=== PATIENT | female | born 1990 | race Caucasian/White ===

== ENCOUNTER 2020-03-20 21:51 | Emergency (ER) | payer SELFPAY ==
[2020-03-20 22:01] VITALS: BP 171/72; PULSE 91; RESP 20; TEMP 36.8; O2SAT 98
--- NOTE | 2020-03-20 22:12 | ED_ITS ---
HPI - Dental/Oral General Chief complaint: Dental/Oral Stated complaint: tooth ache Time Seen by Provider: 03/20/20 21:58 Source: patient Mode of arrival: Ambulatory Limitations: no limitations History of Present Illness HPI Narrative: Patient here with boyfriend, boyfriend's mother's driving. Complains of left upper tooth pain for the past 2 days. Hard to sleep. No known injury. No fever. Seen by urgent care dental today and recommend Tylenol and ibuprofen and was referred to specialist. No antibiotics no pain medication otherwise. Denies does not want a test. No recent illness. No fever chills cough cold congestion sore throat. No recent dental procedures. Teeth map: 1. Tenderness/pain to tooth 14. Related Data Previous Rx's Medication Instructions Recorded hydrocodone-acetaminophen 1 tab PO Q6H PRN #7 tab 03/20/20 penicillin V potassium 500 mg PO QID #28 tab 03/20/20 Review of Systems Review of Systems Narrative: GENERAL: Denies chills, fatigue, malaise, fever, sweats. HEENT: Denies sinus pain, ear pain, sore throat, difficulty swallowing, complains of dental pain RESPIRATORY: Denies dyspnea, cough CARDIOVASCULAR: Denies chest pain, palpitations, edema, GASTROINTESTINAL: Denies nausea, vomiting, abdominal pain, diarrhea, constipation, melena. NEUROLOGIC: Complains headache PSYCHIATRIC: No SI or HI or hallucinations ROS Unobtainable: All systems reviewed & are unremarkable except as noted in HPI and below Patient History Social History Smoking Status: Never smoker Smoking Status: Never smoker alcohol intake frequency: 0-2 drinks per day Substance Use Type: marijuana Exam Narrative Exam Narrative: GENERAL: patient appears stated age. Well-nourished, well- developed patient, in no distress, not toxic not dyspneic HEAD: Normocephalic. ENT: Mucous membranes moist. No drooling no tongue elevation no trismus no malocclusion, tenderness to tooth 14. No surrounding gum erythema edema or palpable abscess. No facial swelling. No erythema of the face or skin. No fracture to tooth number 14. NECK: Trachea midline. Non tender CARDIOVASCULAR: Regular rate and rhythm without murmurs, gallops, or rubs. RESPIRATORY: Clear to auscultation. Breath sounds equal bilaterally. No wheezes, rales, or rhonchi. NEURO: AOx4. SKIN: Warm and dry PSYCH: Not anxious, is cooperative Initial Vital Signs Initial Vital Signs: Vital Signs Temperature 98.3 F 03/20/20 22:01 Pulse Rate 91 H 03/20/20 22:01 Respiratory Rate 20 03/20/20 22:01 Blood Pressure 171/72 H 03/20/20 22:01 Pulse Oximetry 98 03/20/20 22:01 Course Orders Ordered: Discontinued Medications Hydrocodone Bitart/Acetaminophen ([place] 5/325) 1 tab PO NOW ONE Stop: 03/20/20 22:11 Last Admin: 03/20/20 22:20 Dose: 1 tab Documented by: DIAZ Hydrocodone Bitart/Acetaminophen (Vicod[place] 5/325 Prepack) 1 bottle MISC SEEINSTR ONE Stop: 03/20/20 22:11 Last Admin: 03/20/20 22:20 Dose: 1 bottle Documented by: DIAZ Al Hydrox/Mg Hydrox/Simethicone 20 ml/ Lidocaine HCl 15 ml 0 ml PO NOW ONE Stop: 03/20/20 22:17 Last Admin: 03/20/20 22:20 Dose: 35 ml Documented by: DIAZ Ondansetron HCl (Zofran Odt) 4 mg SL NOW ONE Stop: 03/20/20 22:12 Last Admin: 03/20/20 22:19 Dose: 4 mg Documented by: DIAZ Penicillin V Potassium (Veetids) 500 mg PO NOW ONE Stop: 03/20/20 22:11 Last Admin: 03/20/20 22:19 Dose: 500 mg Documented by: DIAZ Reevaluation(s) Reevaluation #1: Reviewed treatment plan with patient and boyfriend. They agree with plan. They desire discharge home. Not toxic Time: 22:25 Vital Signs Vital signs: Vital Signs - 8 hr 03/20/20 22:01 Temperature 98.3 F Pulse Rate 91 H Respiratory Rate 20 Blood Pressure 171/72 H Pulse Oximetry 98 MDM - Dental/Oral Differential Diagnosis Differential diagnosis: Likely toothache and dental abscess MDM Narrative Medical decision making narrative: Appropriate for discharge home. No labs indicated this time. Patient not toxic. Blood pressure noted likely pain related. Discharge Plan Departure Patient Disposition: Home Clinical Impression: Toothache Discharge Date/Time: 03/20/20 22:30 Instructions: DI for Dental Pain Activity Restrictions/Additional Instructions: No driving tonight. No driving or operating machinery with prescribed pain medication. Call the dentist on Sunday that was referred to you today. No smoking. Return if worse or if any questions or concerns or swelling of the face or mouth or tongue or trouble swallowing or breathing for. Remove the dental ball in one hour before going to sleep. Prescriptions: New hydrocodone-acetaminophen 5-325 mg tablet 1 tab PO Q6H PRN (Reason: pain) Qty: 7 RF: 0 penicillin V potassium 500 mg tablet 500 mg PO QID Qty: 28 RF: 0
[2020-03-20] MEDS: PENICILLIN VK 250 MG TABLET 500 MG PO (22:19)
[2020-03-20] MEDS: ONDANSETRON 4 MG ODT SL (22:19)
[2020-03-20] MEDS: HYDROCODONE/ACET 5/325 TABLET 1 TAB PO (22:20)
[2020-03-20] MEDS: HYDROCODONE/ACET 5/325 PREPACK 1 BOTTLE MISC (22:20)
[2020-03-20] MEDS: MAG HYDROX/ALUMINUM/SIMETH SUS 20 ML, LIDOCAINE VISCOUS 2% 15 ML PO (22:20)
== END 2020-03-20 22:30 | disposition home or self-care (01) ==
PROVIDERS: Emergency Provider Emergency Medicine
DX: K08.89 Other specified disorders of teeth and supporting structures (principal)
CPT/HCPCS: 99283